=== PATIENT | male | born 1940 | race Caucasian/White ===

== ENCOUNTER → 2024-04-10 14:22 | Outpatient (REF) | payer BC, SELFPAY | LOC: PAVMRI 14:22 | PROVIDERS: ATTENDING PHYSICIAN Specialist; FAMILY PHYSICIAN Radiology Vascular & Interventional Radiology | DX: K86.2 Cyst of pancreas (principal) | CPT/HCPCS: 74183; A9575 ==

== ENCOUNTER 2024-10-09 06:31 | Day surgery (SDC) | payer OTHER, SELFPAY ==
[2024-09-24 12:35] VITALS: BMI 28.9
[2024-09-24 13:24] LABS: Hematocrit 40.6 % (39.0-52.0); Hemoglobin 13.9 g/dL (13.0-18.0); Mean Corp Hgb Conc. 34.2 g/dL (33.0-37.0); Mean Corpuscular Volume 96.4 fL (80.0-94.0); Mean Platelet Volume 11.6 fL (7.4-10.4); Platelet Count 172 10^3/uL (130-400); Red Blood Cell Count 4.21 10^6/uL (4.70-6.10); Red Cell Dist. Width 13.2 % (11.5-14.5); White Blood Cell Count 6.1 10^3/uL (4.8-10.8)
[2024-09-24 13:50] LABS: Glycohemoglobin (HgbA1c) 5.3 % (4.0-5.6)
[2024-09-24 14:18] LABS: ALT (SGPT) 27 U/L (0-50); AST (SGOT) 33 U/L (17-59); Albumin 4.5 g/dl (3.5-5.0); Alkaline Phosphatase 82 U/L (38-126); Blood Urea Nitrogen 16 mg/dl (9-20); Calcium 9.8 mg/dl (8.4-10.2); Carbon Dioxide 26 mmol/L (22-30); Chloride 103 mmol/L (98-107); Estimated Creatinine Clearance 55 ml/min; Glucose 126 mg/dl (70-99); Potassium 4.3 mmol/L (3.5-5.1); Sodium 137 mmol/L (135-145); Total Bilirubin 1.9 mg/dl (0.2-1.3); Total Protein 7.1 g/dl (6.3-8.2); eGFR > 60.00
[2024-10-02 11:41] VITALS: BMI 28.9
[2024-10-09] VITALS (10 sets, daily range): BP systolic 156–180; BP diastolic 75–89; BMI 28.9
[2024-10-09] MEDS: CELEBREX 200 MG PO (06:37)
[2024-10-09] MEDS: TYLENOL 1000 MG PO (06:37)
[2024-10-09] MEDS: NORMOSOL-R/PLASMALYTE-A 1000 IV (06:48)
--- NOTE | 2024-10-09 06:50 | PTCARENOTE ---
Hammad Earl did not want the shoulder immobilizer that patient brought in. He took the sling instead. Will monitor patient.
--- NOTE | 2024-10-09 07:17 | W.DS.TRANS ---
DC Summary - [employer] Development [employer]
-
Discharge Instructions:
Sleep Apnea Risk Intermediate
Discharge Diagnosis/Procedures L Reverse TSA 10/09/24
Diet As tolerated
Activity No strenuous activity
Driving Restrictions No driving
Instructions:
Stand-Alone Forms: SDS Total Shoulder D/C Inst.
Changes to Home Medications: Yes
Discharge Medications:
DC Medications w/original date entered in [facility]
lisinopril 20 mg tablet 20 mg PO DAILY Blood pressure 08/12/15
cholecalciferol (vitamin D3) 25 mcg (1,000 unit) tablet (Vitamin D3) 25 mcg PO DAILY 10/02/24
ibuprofen-diphenhydramine citrate 200 mg-38 mg tablet (Advil PM) 1 cap PO HS 10/02/24
mupirocin 2 % topical ointment 1 applic topical BID 10/02/24
rosuvastatin 20 mg tablet 20 mg PO HS 10/02/24
acetaminophen 325 mg tablet (Tylenol) 650 mg (2 x 325 mg) PO QID #1 tab 10/09/24
aspirin 325 mg tablet 325 mg PO DAILY blood clot prevention #1 tab 10/09/24
celecoxib 100 mg capsule 100 mg PO BID Anti-inflammatory #14 caps 10/09/24
dexamethasone 4 mg tablet 4 mg PO BID inflammation #6 tabs 10/09/24
docusate sodium 100 mg capsule (Colace) 100 mg PO BID stool softner #1 cap 10/09/24
magnesium hydroxide 400 mg/5 mL oral suspension (Milk of Magnesia) 30 ml PO HS PRN Constipation #1 mL 10/09/24
ondansetron 4 mg disintegrating tablet 4 mg PO Q6H PRN n/v #20 tabs 10/09/24
oxycodone 5 mg tablet 5 mg PO Q6H PRN 1 tab moderate pain, 2 tabs severe pain #30 tabs 10/09/24
sennosides 8.6 mg tablet (Senokot) 17.2 mg (2 x 8.6 mg) PO BID laxative #2 tabs 10/09/24
Home Medication Changes
acetaminophen 325 mg tablet (Tylenol) 650 mg (2 x 325 mg) PO QID #1 tab 10/09/24
aspirin 325 mg tablet 325 mg PO DAILY blood clot prevention #1 tab 10/09/24
celecoxib 100 mg capsule 100 mg PO BID Anti-inflammatory #14 caps 10/09/24
dexamethasone 4 mg tablet 4 mg PO BID inflammation #6 tabs 10/09/24
docusate sodium 100 mg capsule (Colace) 100 mg PO BID stool softner #1 cap 10/09/24
magnesium hydroxide 400 mg/5 mL oral suspension (Milk of Magnesia) 30 ml PO HS PRN Constipation #1 mL 10/09/24
ondansetron 4 mg disintegrating tablet 4 mg PO Q6H PRN n/v #20 tabs 10/09/24
oxycodone 5 mg tablet 5 mg PO Q6H PRN 1 tab moderate pain, 2 tabs severe pain #30 tabs 10/09/24
sennosides 8.6 mg tablet (Senokot) 17.2 mg (2 x 8.6 mg) PO BID laxative #2 tabs 10/09/24
Pending Results: No
[2024-10-09] MEDS: ANCEF 5 IV (11:25)
== END 2024-10-09 11:40 | disposition home or self-care (01) ==
LOC: SDS 06:31
PROVIDERS: ATTENDING PHYSICIAN Specialist; FAMILY PHYSICIAN Family Medicine
DX: M75.122 Complete rotator cuff tear or rupture of left shoulder, not specified as traumatic (principal)
CPT/HCPCS: 23472; 36415; 73020; 80053; 83036; 85027; 87070; 93005; C1713; C1776

== ENCOUNTER 2024-10-12 15:15 | Emergency (ER) | payer OTHER, SELFPAY ==
[2024-10-12 15:19] VITALS: BP 153/70
--- NOTE | 2024-10-12 18:09 | ED.GENMED ---
History of Present Illness
General
Chief Complaint: Post Operative Problem(s)
Time Seen by Provider: 10/12/24 17:26
History of Present Illness
History of Present Illness:
84-year-old male presents to the emergency department for evaluation of bleeding from the left shoulder, he is 3 days status post reverse left total shoulder performed by Dr. Beltran. Bleeding is stopped as of now. Not on blood thinners. Denies
significant pain
Past History
Past History
ED Past Medical History: HTN and Hypercholesterolemia
ED Past Surgical History: Cholecystectomy and Orthopedic (knee replacement)
Social History
Tobacco: Former smoker (quit at age 23)
Alcohol: Daily (Beer and/or liquor)
Drug: None
Personal:
Living: with family
Employment: Retired
Family History
Family History: Other
Review of Systems
Review of Systems
Allergies reviewed?: Yes
All Other Systems: ROS reviewed and negative except as documented in HPI and ROS
Phy Exam
Physical Exam
Physical Exam:
GEN: Well appearing, NAD, WDWN
HEENT: Oral mucosa moist, no scleral icterus
Cardiac: Regular rate
Lung: No respiratory distress, no tachypnea
MSK: Incision site to the left shoulder is predominantly clean dry and intact however there is a minor amount of dehiscence to the lower aspect with minimal active bleeding. This was reapproximated and glue was applied for further hemostasis,
Aquacel dressing replaced
Skin: Good color, no pallor or jaundice, no rashes
Neuro: AO x3, moves all extremities freely
Psych: Calm, cooperative
Course
Vital Signs
Initial and Last Documented VS:
Initial Vital Signs
Temp Pulse Resp BP Pulse Ox
97.8 F 70 16 153/70 99
10/12/24 15:19 10/12/24 15:19 10/12/24 15:19 10/12/24 15:19 10/12/24 15:19
Last Documented Vital Signs
Temp Pulse Resp BP Pulse Ox
97.8 F 70 16 153/70 99
10/12/24 15:19 10/12/24 15:19 10/12/24 15:19 10/12/24 15:19 10/12/24 15:19
MDM/Problems Addressed
MDM/Problems Addressed:
Clinical image sent to patient's orthopedic surgeon who agrees the wound looks well, advised the patient can follow-up routinely as an outpatient
*Critical Care Note
Total Time (30-74mins, 75-104mins- exclusive of procedures): Not Applicable
ED Attending Note
-
Portions of this chart may have been created with voice recognition software.� Occasional wrong word or��sound alike� substitutions may have occurred due to the inherent limitations of voice recognition software.
Discharge Plan
Departure
Patient Disposition: Home (Routine Discharge)
Date of Disposition: 10/12/24
Time of Disposition: 18:15
Patient with high blood pressure during this ER visit?: No
Discharge Problem:
Post-op bleeding
Instructions: Bleeding After Surgery
Prescriptions:
No Action
lisinopril 20 MG tablet
20 mg PO DAILY
rosuvastatin 20 mg Tablet
20 mg PO HS
cholecalciferol (vitamin D3) [Vitamin D3] 25 mcg (1,000 unit) Tablet
25 mcg PO DAILY
Advil PM 200-38 mg Tablet
1 cap PO HS
mupirocin 2 % Ointment
1 applic TOPICAL BID
aspirin 325 mg tablet
325 mg PO DAILY Qty: 1 0RF
Rx Instructions:
Take with food
celecoxib 100 mg capsule
100 mg PO BID Qty: 14 0RF
Rx Instructions:
take with food
docusate sodium [Colace] 100 mg capsule
100 mg PO BID Qty: 1 0RF
magnesium hydroxide [Milk of Magnesia] 400 mg/5 mL suspension
30 ml PO HS PRN (Reason: Constipation) Qty: 1 0RF
dexamethasone 4 mg tablet
4 mg PO BID Qty: 6 0RF
Rx Instructions:
take with food
post-op use only
ondansetron 4 mg tablet,disintegrating
4 mg PO Q6H PRN (Reason: n/v) Qty: 20 0RF
Rx Instructions:
take 1/2h b/f pain med if recurrent nausea
allow to dissolve in mouth w/o water
sennosides [Senokot] 8.6 mg tablet
17.2 mg PO BID Qty: 2 0RF
oxycodone 5 mg tablet
5 mg PO Q6H PRN (Reason: 1 tab moderate pain, 2 tabs severe pain) Qty: 30 0RF
Rx Instructions:
Ongoing therapy
acetaminophen [Tylenol] 325 mg tablet
650 mg PO QID Qty: 1 0RF
Rx Instructions:
SCHEDULED DOSING
Referrals:
Mono Palacios MD [Family Provider] -
Interventions
Interventions:
*Risk Screen - Suicide Last Done: 10/12/24 15:20
*General Assessment Last Done: 10/12/24 16:41
*Neglect/Abuse Screening Last Done: 10/12/24 15:20
*ED COVID-19 Vaccine History Last Done: 10/12/24 16:41
ED-Skin Assessment Last Done: 10/12/24 16:41
Discharge Date and Time
Print Language: NEPALI
== END 2024-10-12 19:21 | disposition home or self-care (01) ==
LOC: EMR 15:15
PROVIDERS: EMERGENCY PHYSICIAN Emergency Medicine; FAMILY PHYSICIAN Family Medicine
DX: M96.830 Postprocedural hemorrhage of a musculoskeletal structure following a musculoskeletal system procedure (principal); Y83.8 Other surgical procedures as the cause of abnormal reaction of the patient, or of later complication, without mention of misadventure at the time of the procedure; E78.00 Pure hypercholesterolemia, unspecified; I10 Essential (primary) hypertension; Z87.891 Personal history of nicotine dependence
CPT/HCPCS: 99282

== ENCOUNTER 2024-11-20 12:55 | Outpatient (RCR) | payer OTHER, SELFPAY | END 2024-11-20 23:59 | disposition home or self-care (01) | LOC: RPT 12:55 | PROVIDERS: ATTENDING PHYSICIAN Physician Assistant Medical; FAMILY PHYSICIAN Family Medicine | DX: Z47.1 Aftercare following joint replacement surgery (principal); Z96.612 Presence of left artificial shoulder joint; Z73.6 Limitation of activities due to disability | CPT/HCPCS: 97010; 97110; 97161 ==

== ENCOUNTER 2024-12-21 10:17 | Outpatient (RCR) | payer OTHER, SELFPAY | END 2024-12-21 23:59 | disposition home or self-care (01) | LOC: RPT 10:17 | PROVIDERS: ATTENDING PHYSICIAN Physician Assistant Medical; FAMILY PHYSICIAN Family Medicine | DX: Z47.1 Aftercare following joint replacement surgery (principal); Z96.612 Presence of left artificial shoulder joint; Z73.6 Limitation of activities due to disability; M62.81 Muscle weakness (generalized); M25.512 Pain in left shoulder | CPT/HCPCS: 97010; 97110 ==

== ENCOUNTER 2025-01-18 08:58 | Outpatient (RCR) | payer OTHER, SELFPAY | END 2025-01-18 23:59 | disposition home or self-care (01) | LOC: RPT 08:58 | PROVIDERS: ATTENDING PHYSICIAN Physician Assistant Medical; FAMILY PHYSICIAN Family Medicine | DX: Z47.1 Aftercare following joint replacement surgery (principal); Z96.612 Presence of left artificial shoulder joint; Z73.6 Limitation of activities due to disability; M62.81 Muscle weakness (generalized); M25.512 Pain in left shoulder | CPT/HCPCS: 97010; 97110 ==

== ENCOUNTER 2025-01-21 08:58 | Outpatient (RCR) | payer OTHER, SELFPAY | END 2025-01-21 23:59 | disposition home or self-care (01) | LOC: RPT 08:58 | PROVIDERS: ATTENDING PHYSICIAN Physician Assistant Medical; FAMILY PHYSICIAN Family Medicine | DX: Z47.1 Aftercare following joint replacement surgery (principal); Z96.612 Presence of left artificial shoulder joint; Z73.6 Limitation of activities due to disability; M62.81 Muscle weakness (generalized) | CPT/HCPCS: 97010; 97110 ==

== ENCOUNTER 2025-03-16 16:25 | Emergency (ER) | payer OTHER, SELFPAY ==
[2025-03-16 16:38] VITALS: BP 125/100
[2025-03-16 21:59] VITALS: BMI 28.0
[2025-03-16 22:03] VITALS: BP 142/66
--- NOTE | 2025-03-16 22:44 | ED.GENMED ---
History of Present Illness
General
Chief Complaint: Visual Problem
Source: patient and family
Exam Limitations: none
Time Seen by Provider: 03/16/25 22:32
History of Present Illness
History of Present Illness:
See MDM
Past History
Past History
ED Past Medical History: HTN and Hypercholesterolemia
ED Past Surgical History: Cholecystectomy and Orthopedic (knee replacement)
Social History
Tobacco: Former smoker (quit at age 23)
Alcohol: Daily (Beer and/or liquor)
Drug: None
Personal:
Living: with family
Employment: Retired
Family History
Family History: Other
Phy Exam
Physical Exam
Physical Exam:
See MDM
Course
Orders/Labs/Results
Orders:
Orders
03/16/25 22:56
Complete Blood Count/With Diff Urgent
Comprehensive Metabolic Panel Urgent
03/17/25
CT Head & Neck Angio W/wo IV Urgent
Reason For Exam: intermittent left eye blurry vision
Abnormal Lab Results
03/16/25
22:56
RBC 3.90 L 10^6/uL
(4.70-6.10)
Hgb 12.7 L g/dL
(13.0-18.0)
Hct 36.7 L %
(39.0-52.0)
MCV 94.1 H fL
(80.0-94.0)
MCH 32.6 H pg
(27.0-31.0)
MPV 10.8 H fL
(7.4-10.4)
Absolute Neuts (auto) 7.4 H 10^3/uL
(1.4-6.5)
Absolute Monos (auto) 1.0 H 10^3/uL
(0.1-0.6)
Lymphocytes % 18.3 L %
(20.5-51.1)
Glucose 107 H mg/dl
(70-99)
03/16/25 22:56
03/16/25 22:56
Vital Signs
Initial and Last Documented VS:
Initial Vital Signs
Temp Pulse Resp BP Pulse Ox
97.8 F 55 16 125/100 97
03/16/25 16:38 03/16/25 16:38 03/16/25 16:38 03/16/25 16:38 03/16/25 16:38
Last Documented Vital Signs
Temp Pulse Resp BP Pulse Ox
97.8 F 76 18 120/68 99
03/16/25 16:38 03/17/25 03:02 03/17/25 03:02 03/17/25 03:02 03/17/25 03:02
MDM/Problems Addressed
Differential Diagnosis Includes:
Note:
CHIEF COMPLAINT(S)
Blurry vision in the left eye.
HISTORY OF PRESENT ILLNESS
The patient is an 84-year-old male with a past medical history significant for the use of lisinopril and rosuvastatin, presenting with blurry vision in the left eye. He reports that he has experienced some degree of blurring for the past year,
predominantly minimal until this morning, when it became completely blurred, and he 'could hardly see out of it.' The blurring resolved after resting for approximately three hours. Following an evaluation by his physician, the patient experienced
double vision later in the day, however, it resolved by the time of the emergency department visit. Patient does acknowledge that the blurry vision was in the left eye only.
The patients primary care physician suspected if symptoms worsened, urgent evaluation was necessary. The patient denies any history of taking blood thinners and reports no heart or lung conditions. No current blurry vision or double vision is
present. The patient reports a history of head trauma, striking his head once previously.
He did see the director of events few days ago and was told that his left eye was 'normal'. He was told to obtain carotid imaging in the next few days. However, since symptoms worsen, he came to emergency department.
PAST MEDICAL HISTORY
The patient is maintained on lisinopril and rosuvastatin for chronic conditions, the specifics of which are not detailed.
MEDICATIONS
Lisinopril.
Rosuvastatin.
PHYSICAL EXAM
General: Well appearing and non-toxic
HEENT: protecting airway. Pupils equal reactive. EOMI. No visual field cut
Neck: appears supple
CV: No evidence of cyanosis. Regular rate and rhythm
Resp: No accessory muscle use
Abd: Non-distended
Extremities: No deformities
Neuro: alert
Psych: Normal affect
Skin: Intact
Nursing notes reviewed and vital signs reviewed.
PLAN
Obtain a CT scan of the neck and head to evaluate the blood vessels, particularly the carotid arteries, and check for clots. Obtain blood work to check kidney function (creatinine). Consider an echocardiogram to assess for undiagnosed atrial
fibrillation or cardiac issues, given the intermittent nature of symptoms and potential embolic sources. Monitor vision and neurological status closely.
DIFFERENTIAL DIAGNOSIS
The Differential Diagnosis includes, in no particular order and is not limited to:
- Transient ischemic attack (TIA)
- Carotid artery stenosis
- Retinal artery occlusion
- Posterior vitreous detachment
- Hypertensive retinopathy
- Diabetic retinopathy
- Age-related macular degeneration
- Glaucoma
- Migraine aura without headache
- Amaurosis fugax
SUMMARY OF ENCOUNTER
The patient, an 84-year-old male, presented to the emergency department with concerns of blurred vision in the left eye, which had been present intermittently for a year but became severely blurred this morning and resolved after three hours. Double
vision was experienced later but was resolved by the time of his ED visit. A CT scan of the neck and head was performed and discussed with the primary care physician. Outpatient follow-up with the primary care for further assessment, such as an MRI
for more sensitive evaluation of a possible transient ischemic attack (TIA), was recommended.
RADIOLOGY � INDEPENDENT INTERPRETATION:
- My independent interpretation of the CT scan is negative for acute stenosis or significant sinus pathology.
MEDICAL DECISION MAKING
1. Number & Complexity of Problems:
- Chronic conditions affecting care: patient maintained on lisinopril and rosuvastatin.
- Differential diagnoses referenced include transient ischemic attack (TIA) among others.
2. Data Reviewed:
- Category 1: CT scan of head and neck reviewed.
3. Risk:
- Consideration of admission/observation was made due to potential complexity/risk. However, outpatient management was deemed appropriate based on negative CT findings and the primary care physicians ability to further investigate with MRI and
echocardiogram follow-up.
PATHOLOGIES TO CONSIDER
- Transient ischemic attack (TIA)
- Carotid artery stenosis
- Retinal artery occlusion
*Pulse Oximetry
SaO2: 99
Oxygen Mode of Delivery: Room air
Patient hypoxic: no
*Critical Care Note
Total Time (30-74mins, 75-104mins- exclusive of procedures): Not Applicable
ED Attending Note
-
Portions of this chart may have been created with voice recognition software.� Occasional wrong word or��sound alike� substitutions may have occurred due to the inherent limitations of voice recognition software.
Discharge Plan
Departure
Patient Disposition: Home (Routine Discharge)
Date of Disposition: 03/17/25
Time of Disposition: 03:03
Patient with high blood pressure during this ER visit?: No
Discharge Problem:
Blurred vision, left eye
Prescriptions:
No Action
lisinopril 20 MG tablet
20 mg PO DAILY
Advil PM 200-38 mg Tablet
1 cap PO HS
rosuvastatin 40 mg Tablet
40 mg PO HS
cholecalciferol (vitamin D3) [Vitamin D3] 125 mcg (5,000 unit) Tablet
125 mcg PO DAILY
Referrals:
Mono Palacios MD [Family Provider, Family Practice]
Activity Restrictions/Additional Instructions:
Please return for any worsening symptoms.
You may return at any time if you have further concerns.
Please follow up with your doctor at the first available appointment, preferably this week.
Thank you for choosing [facility].
Interventions
Interventions:
*Risk Screen - Suicide Last Done: 03/16/25 16:40
*General Assessment Last Done: 03/16/25 21:59
*Neglect/Abuse Screening Last Done: 03/16/25 16:40
*ED- Fall Risk Assessment Last Done: 03/16/25 21:59
*ED COVID-19 Vaccine History Last Done: 03/16/25 21:59
ED-EENT Assessment Last Done: 03/16/25 22:10
ED- Neurological Assessment Last Done: 03/16/25 22:10
ED Swallowing Screen Last Done: 03/16/25 22:09
Discharge Date and Time
Print Language: WOLOF
[2025-03-16 23:00] VITALS: BP 133/64
[2025-03-16 23:07] LABS: % Basophils 0.5 % (0-2); % Eosinophils 1.8 % (0-6); % Immature Granulocytes 0.4 % (0-0.5); % Lymphocytes 18.3 % (20.5-51.1); % Monocytes 9.3 % (1.7-9.3); % Neutrophils 69.7 % (42.2-75.2); Absolute Basophils 0.1 10^3/uL (0-0.2); Absolute Eosinophils 0.2 10^3/uL (0-0.7); Absolute Lymphocytes 1.9 10^3/uL (1.2-3.4); Absolute Neutrophils 7.4 10^3/uL (1.4-6.5); Hematocrit 36.7 % (39.0-52.0); Hemoglobin 12.7 g/dL (13.0-18.0); Mean Corp Hgb Conc. 34.6 g/dL (33.0-37.0); Mean Corpuscular Hgb 32.6 pg (27.0-31.0); Mean Corpuscular Volume 94.1 fL (80.0-94.0); Mean Platelet Volume 10.8 fL (7.4-10.4); Nucleated Red Blood Cells % 0 % (-); Platelet Count 250 10^3/uL (130-400); Red Cell Dist. Width 12.1 % (11.5-14.5); White Blood Cell Count 10.6 10^3/uL (4.8-10.8)
[2025-03-16 23:16] LABS: ALT (SGPT) 21 U/L (0-50); AST (SGOT) 22 U/L (17-59); Albumin 3.9 g/dl (3.5-5.0); Alkaline Phosphatase 109 U/L (38-126); Blood Urea Nitrogen 11 mg/dl (9-20); Calcium 9.2 mg/dl (8.4-10.2); Carbon Dioxide 23 mmol/L (22-30); Chloride 107 mmol/L (98-107); Estimated Creatinine Clearance 62 ml/min; Glucose 107 mg/dl (70-99); Potassium 4.3 mmol/L (3.5-5.1); Sodium 138 mmol/L (135-145); Total Bilirubin 1.1 mg/dl (0.2-1.3); Total Protein 6.6 g/dl (6.3-8.2); eGFR > 60.00
[2025-03-17] VITALS: BP 121/59
[2025-03-17 01:00] VITALS: BP 121/64
[2025-03-17 03:02] VITALS: BP 120/68
== END 2025-03-17 03:09 | disposition home or self-care (01) ==
LOC: EMR 16:25
PROVIDERS: EMERGENCY PHYSICIAN Student in an Organized Health Care Education/Training Program; FAMILY PHYSICIAN Family Medicine
DX: H53.8 Other visual disturbances (principal); Z87.891 Personal history of nicotine dependence
CPT/HCPCS: 99285; 70496; 70498; 80053; 85025; Q9967

== ENCOUNTER → 2025-03-29 13:59 | Outpatient (REF) | payer OTHER, SELFPAY | LOC: RAD 13:59 | PROVIDERS: ATTENDING PHYSICIAN Surgery Vascular Surgery; FAMILY PHYSICIAN Family Medicine | DX: I65.23 Occlusion and stenosis of bilateral carotid arteries (principal) | CPT/HCPCS: 93880 ==

== ENCOUNTER → 2025-04-02 08:20 | Outpatient (REF) | payer OTHER, SELFPAY | LOC: RCS 08:20 | PROVIDERS: ATTENDING PHYSICIAN Family Medicine | DX: G45.3 Amaurosis fugax (principal) | CPT/HCPCS: 93306 ==

== ENCOUNTER → 2025-04-13 14:26 | Outpatient (REF) | payer OTHER, SELFPAY ==
[2025-04-13 15:49] LABS: C-Reactive Protein 49.00 mg/L (0.0-10.00)
== END ==
LOC: REG 14:26
PROVIDERS: ATTENDING PHYSICIAN Ophthalmology; FAMILY PHYSICIAN Family Medicine
DX: G45.3 Amaurosis fugax (principal)
CPT/HCPCS: 36415; 85652; 86140

== ENCOUNTER 2025-04-15 11:10 | Inpatient (IN) | payer OTHER, SELFPAY ==
[2025-04-15] VITALS (8 sets, daily range): BP systolic 119–162; BP diastolic 59–88; BMI 26.3; BMI 26.5
--- NOTE | 2025-04-15 09:08 | ED.GENMED ---
Addendum entered and electronically signed by Jyotsna Herron, 04/15/25 10:20:
No significant lack abnormalities other than potassium hemolyzed, will repeat. Mild anemia noted, no indication for blood transfusion
NIH stroke scale is 0, thrombolytics are not indicated
Original Note:
History of Present Illness
General
Chief Complaint: Visual Problem
Time Seen by Provider: 04/15/25 08:56
Nursing documentation reviewed up to this point in time: agreed with
History of Present Illness
History of Present Illness:
84-year-old male brought to the ER by family for further evaluation of visual changes. Patient had been admitted to this hospital the end of February for evaluation after syncopal event. He had a reported episode of amaurosis fugax at that time which
has not recurred. Patient had routine follow-up with his eye manager career, Dr. Mac, with whom he had outpatient labs performed. He was advised that his sed rate was elevated and he was initiated on prednisone yesterday. He has taken 2
doses. He reports that he is feeling otherwise well. No chest pain, no shortness of breath, no additional syncope or other reported trauma. He is on baby aspirin daily, no other blood thinners noted. He has been eating and drinking without
difficulty, although he reports he has lost about 15 pounds in the last month or so.
I was able to review patient history and evaluation with Dr. Mendoza who would recommend patient for admission for IV steroids and temporal artery biopsy given decreased vision to his right eye and concern for possible progression to his left eye.
Past History
Past History
ED Past Medical History: HTN and Hypercholesterolemia
ED Past Surgical History: Cholecystectomy and Orthopedic (knee replacement)
Social History
Tobacco: Former smoker (quit at age 23)
Alcohol: Daily (Beer and/or liquor)
Drug: None
Personal:
Living: with family
Employment: Retired
Family History
Family History: Other
Phy Exam
Physical Exam
Physical Exam:
Vital signs reviewed, within normal limits, head is normocephalic atraumatic, PERRL, EOMI, speech is clear, mucous membranes moist, no facial asymmetry noted, no dysdiadochokinesia, no ataxia, no pronator drift, GCS is 15, heart regular rate and
rhythm not murmurs or ectopy, lungs are clear to auscultation without wheezes rales or rhonchi, no carotid bruits, no JVD, abdomen is soft and nontender on palpation, extremities without edema.
Course
Orders/Labs/Results
Orders:
Orders
04/15/25 09:09
Electrocardiogram (*1) Stat
Reason for Study: Other
Other Reason for Exam: chest pain
EKG- Treatment ONCE
04/15/25 09:10
MethylPREDNISolone PF [Solu-Medrol Pf] 60 mg IV NOW STA
04/15/25 09:19
Basic Metabolic Panel Urgent
Complete Blood Count/With Diff Urgent
PTT Urgent
Prothrombin Time Urgent
04/15/25 10:04
Basic Metabolic Panel Urgent
Abnormal Lab Results
04/15/25
09:19
RBC 3.81 L 10^6/uL
(4.70-6.10)
Hgb 12.0 L g/dL
(13.0-18.0)
Hct 35.6 L %
(39.0-52.0)
MCH 31.5 H pg
(27.0-31.0)
Abs Immat Gran (auto) 0.1 H 10^3/uL
(0-0.05)
Immature Gran % 0.7 H %
(0-0.5)
Neutrophils % 76.6 H %
(42.2-75.2)
Lymphocytes % 18.2 L %
(20.5-51.1)
Glucose 183 H mg/dl
(70-99)
04/15/25 09:19
Vital Signs
Initial and Last Documented VS:
Initial Vital Signs
Temp Pulse Resp BP Pulse Ox
97.9 F 94 18 126/61 97
04/15/25 08:53 04/15/25 08:53 04/15/25 08:53 04/15/25 08:53 04/15/25 08:53
Last Documented Vital Signs
Temp Pulse Resp BP Pulse Ox
97.9 F 94 18 126/61 97
04/15/25 08:53 04/15/25 08:53 04/15/25 08:53 04/15/25 08:53 04/15/25 09:08
MDM/Problems Addressed
Differential Diagnosis Includes:
Differential diagnosis to consider but not limited to temporal arteritis, other vasculitis, CVA along with other etiologies considered
Chronic conditions affecting care:
Hypertension, high cholesterol
*Pulse Oximetry
SaO2: 97
Oxygen Mode of Delivery: Room air
Patient hypoxic: no
*EKG
Interpreted by ED Provider?: Yes (I dependently viewed and interpreted twelve-lead EKG showing sinus rhythm with first-degree AV block, rate 92, right bundle branch block, leftward axis, left anterior fascicular block, no ST elevation, no change
compared to prior from 09/24/2024)
*Deputy Coroner Investigator Interpretation
Interpretation: abnormal (I dependently viewed and interpreted rhythm strip showing normal sinus rhythm with first-degree AV block, right bundle branch block, no ST elevation)
*Critical Care Note
Total Time (30-74mins, 75-104mins- exclusive of procedures): Not Applicable
Data Reviewed
Review of Other/Old Records Reveals: Labs (ESR dated 04/13/25 elevated at 83)
Update Note
Update Note:
Patient and son present at bedside expressed understanding of need for temporal artery biopsy and IV steroids. Steroids are ordered. Awaiting labs for admission. I was able to review prior diagnostics which included echocardiogram, Bilateral
carotid artery ultrasound 03/29/2025, head and neck CTA 03/17/2025.
I reviewed patient presentation with on-call hospitalist who accepts patient for admission for further evaluation of visual disturbance and concern for temporal arteritis
ED Attending Note
-
Portions of this chart may have been created with voice recognition software.� Occasional wrong word or��sound alike� substitutions may have occurred due to the inherent limitations of voice recognition software.
Discharge Plan
Departure
Patient Disposition: Admit
Date of Disposition: 04/15/25
Time of Disposition: 10:08
Presentation/result/management discussed w/ accepting MD/DO: Hospitalist
Discharge Problem:
Alteration in vision
Prescriptions:
No Action
lisinopril 20 MG tablet
20 mg PO DAILY
Advil PM 200-38 mg Tablet
1 cap PO HS
rosuvastatin 40 mg Tablet
40 mg PO HS
cholecalciferol (vitamin D3) [Vitamin D3] 125 mcg (5,000 unit) Tablet
125 mcg PO DAILY
Referrals:
Mono Palacios MD [Family Provider, Family Practice]
Interventions
Interventions:
*Risk Screen - Suicide Last Done: 04/15/25 08:53
*General Assessment Last Done: 04/15/25 08:53
ED- Neurological Assessment Last Done: 04/15/25 09:28
ED-EENT Assessment Last Done: 04/15/25 09:28
Discharge Date and Time
Print Language: BELIZEAN
[2025-04-15] MEDS: SOLU-MEDROL PF 60 MG IV (09:20)
[2025-04-15 09:35] LABS: Hematocrit 35.6 % (39.0-52.0); Hemoglobin 12.0 g/dL (13.0-18.0); Mean Corp Hgb Conc. 33.7 g/dL (33.0-37.0); Mean Corpuscular Volume 93.4 fL (80.0-94.0); Nucleated Red Blood Cells % 0 % (-); Platelet Count 296 10^3/uL (130-400); Red Cell Dist. Width 12.0 % (11.5-14.5)
[2025-04-15 09:46] LABS: INR 1.04; PT 14.1 Sec (11.4-14.6)
[2025-04-15 09:47] LABS: APTT 31.1 Sec (23.4-35.0)
[2025-04-15 09:51] LABS: Blood Urea Nitrogen 16 mg/dl (9-20); Calcium 9.7 mg/dl (8.4-10.2); Carbon Dioxide 22 mmol/L (22-30); Chloride 104 mmol/L (98-107); Glucose 183 mg/dl (70-99); Sodium 135 mmol/L (135-145); eGFR > 60.00
--- NOTE | 2025-04-15 10:17 | ED.GENMED ---
History of Present Illness
General
Chief Complaint: Visual Problem
Time Seen by Provider: 04/15/25 08:56
Past History
Past History
ED Past Medical History: HTN and Hypercholesterolemia
ED Past Surgical History: Cholecystectomy and Orthopedic (knee replacement)
Social History
Tobacco: Former smoker (quit at age 23)
Alcohol: Daily (Beer and/or liquor)
Drug: None
Personal:
Living: with family
Employment: Retired
Family History
Family History: Other
Phy Exam
NIH Stroke Score
Level of Consciousness: 0 - Alert
LOC questions: 0-Answers both correctly
LOC Commands: 0-Performs both correctly
Best Gaze: 0-Normal
Visual Lewis: 0=Normal, no visual loss
Facial palsy: 0=Normal, symmetrical
Motor - Right Arm: 0=No drift 10 seconds
Motor - Left Arm: 0=No drift 10 seconds
Motor - Right Le-No drift 5 seconds
Motor - Left Le-No drift 5 seconds
Limb Ataxia: 0-Absent
Sensation: 0-Normal
Best Language: 0-No aphasia
Dysarthria: 0-Normal
Extinction and Inattention: 0-No abnormality
Total Score:: 0
Course
Orders/Labs/Results
Orders:
Orders
04/15/25 09:09
Electrocardiogram (*1) Stat
Reason for Study: Other
Other Reason for Exam: chest pain
EKG- Treatment ONCE
04/15/25 09:10
MethylPREDNISolone PF [Solu-Medrol Pf] 60 mg IV NOW STA
04/15/25 09:19
Basic Metabolic Panel Urgent
Complete Blood Count/With Diff Urgent
PTT Urgent
Prothrombin Time Urgent
04/15/25 10:04
Basic Metabolic Panel Urgent
Abnormal Lab Results
04/15/25
09:19
RBC 3.81 L 10^6/uL
(4.70-6.10)
Hgb 12.0 L g/dL
(13.0-18.0)
Hct 35.6 L %
(39.0-52.0)
MCH 31.5 H pg
(27.0-31.0)
Abs Immat Gran (auto) 0.1 H 10^3/uL
(0-0.05)
Immature Gran % 0.7 H %
(0-0.5)
Neutrophils % 76.6 H %
(42.2-75.2)
Lymphocytes % 18.2 L %
(20.5-51.1)
Glucose 183 H mg/dl
(70-99)
04/15/25 09:19
Potassium hemolyzed, will redraw. Kidney function preserved. Hemoglobin reflecting mild anemia, no indication for transfusion
Vital Signs
Initial and Last Documented VS:
Initial Vital Signs
Temp Pulse Resp BP Pulse Ox
97.9 F 94 18 126/61 97
04/15/25 08:53 04/15/25 08:53 04/15/25 08:53 04/15/25 08:53 04/15/25 08:53
Last Documented Vital Signs
Temp Pulse Resp BP Pulse Ox
97.9 F 94 18 126/61 97
04/15/25 08:53 04/15/25 08:53 04/15/25 08:53 04/15/25 08:53 04/15/25 10:17
*Pulse Oximetry
SaO2: 97
Oxygen Mode of Delivery: Room air
ED Attending Note
-
Portions of this chart may have been created with voice recognition software.� Occasional wrong word or��sound alike� substitutions may have occurred due to the inherent limitations of voice recognition software.
Discharge Plan
Departure
Patient Disposition: Admit
Date of Disposition: 04/15/25
Time of Disposition: 10:08
Presentation/result/management discussed w/ accepting MD/DO: Hospitalist
Discharge Problem:
Alteration in vision
Prescriptions:
No Action
lisinopril 20 MG tablet
20 mg PO DAILY
prednisone 20 mg Tablet
20 mg PO BID
aspirin 81 mg Tablet,Delayed Release (Dr/Ec)
81 mg PO DAILY
rosuvastatin [Crestor] 20 mg Tablet
20 mg PO QPM
Referrals:
Mono Palacios MD [Family Provider, Family Practice]
Interventions
Interventions:
*Risk Screen - Suicide Last Done: 04/15/25 08:53
*General Assessment Last Done: 04/15/25 08:53
ED- Neurological Assessment Last Done: 04/15/25 09:28
ED-EENT Assessment Last Done: 04/15/25 09:28
Discharge Date and Time
Print Language: ALBANIAN
--- NOTE | 2025-04-15 10:20 | ED.GENMED ---
History of Present Illness
General
Chief Complaint: Visual Problem
Time Seen by Provider: 04/15/25 08:56
Past History
Past History
ED Past Medical History: HTN and Hypercholesterolemia
ED Past Surgical History: Cholecystectomy and Orthopedic (knee replacement)
Social History
Tobacco: Former smoker (quit at age 23)
Alcohol: Daily (Beer and/or liquor)
Drug: None
Personal:
Living: with family
Employment: Retired
Family History
Family History: Other
Course
Orders/Labs/Results
Orders:
Orders
04/15/25 09:09
Electrocardiogram (*1) Stat
Reason for Study: Other
Other Reason for Exam: chest pain
EKG- Treatment ONCE
04/15/25 09:10
MethylPREDNISolone PF [Solu-Medrol Pf] 60 mg IV NOW STA
04/15/25 09:19
Basic Metabolic Panel Urgent
Complete Blood Count/With Diff Urgent
PTT Urgent
Prothrombin Time Urgent
04/15/25 10:04
Basic Metabolic Panel Urgent
04/15/25 10:34
Add On- LAB Urgent
Tests Added?: LFT
04/15/25 11:00
MethylPREDNISolone. [Solu-Medrol] 1,000 mg 0.9% Sodium Chloride 250 ml [Nss] 250 ml IV Q24H
Abnormal Lab Results
04/15/25
09:19
RBC 3.81 L 10^6/uL
(4.70-6.10)
Hgb 12.0 L g/dL
(13.0-18.0)
Hct 35.6 L %
(39.0-52.0)
MCH 31.5 H pg
(27.0-31.0)
Abs Immat Gran (auto) 0.1 H 10^3/uL
(0-0.05)
Immature Gran % 0.7 H %
(0-0.5)
Neutrophils % 76.6 H %
(42.2-75.2)
Lymphocytes % 18.2 L %
(20.5-51.1)
Glucose 183 H mg/dl
(70-99)
04/15/25 09:19
Vital Signs
Initial and Last Documented VS:
Initial Vital Signs
Temp Pulse Resp BP Pulse Ox
97.9 F 94 18 126/61 97
04/15/25 08:53 04/15/25 08:53 04/15/25 08:53 04/15/25 08:53 04/15/25 08:53
Last Documented Vital Signs
Temp Pulse Resp BP Pulse Ox
97.9 F 94 18 126/61 97
04/15/25 08:53 04/15/25 08:53 04/15/25 08:53 04/15/25 08:53 04/15/25 09:08
*Pulse Oximetry
SaO2: 97
Oxygen Mode of Delivery: Room air
ED Attending Note
-
Portions of this chart may have been created with voice recognition software.� Occasional wrong word or��sound alike� substitutions may have occurred due to the inherent limitations of voice recognition software.
Discharge Plan
Departure
Patient Disposition: Admit
Date of Disposition: 04/15/25
Time of Disposition: 10:39
Prescriptions:
No Action
lisinopril 20 MG tablet
20 mg PO DAILY
prednisone 20 mg Tablet
20 mg PO BID
aspirin 81 mg Tablet,Delayed Release (Dr/Ec)
81 mg PO DAILY
rosuvastatin [Crestor] 20 mg Tablet
20 mg PO QPM
Referrals:
Mono Palacios MD [Family Provider, Family Practice]
Interventions
Interventions:
*Risk Screen - Suicide Last Done: 04/15/25 08:53
*General Assessment Last Done: 04/15/25 08:53
ED- Neurological Assessment Last Done: 04/15/25 09:28
ED-EENT Assessment Last Done: 04/15/25 09:28
Discharge Date and Time
Print Language: [place]
--- NOTE | 2025-04-15 10:49 | HPS.HSE ---
Family Physician
-
Family Physician: Mono Palacios
Chief Complaint
-
R eye blurry vision
History of Present Illness
84yo M with PMHx of L shoulder joint replacement, ASCVD, HLD, HTN sent by south asian history professor with concern for GCA. PAtient developed blurry and double vision in his L eye approximately 1 month ago, that was transient. Eval in ED showed b/l carotid
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 1 week later he developed progressive blurred vision in his R eye and was followed by south asian history professor . ESR was checked nd resulted 83. Patient also complains of 1 month of b/l jaw
pain on mastication.
Medical History
Past Medical History
Past Medical History: Reports Other
Additional Past Medical History:
see above
Past Surgical History: Reports Other
Additional Past Surgical History:
see above
Social History
Tobacco: Former Smoker
Alcohol: Former
Drug: None
Family History
Family History: Not pertinent
Allergies / Home Medications
Allergies reflects when Allergies were last updated in [employer].
Home Medications with original date entered in [employer]
Allergy/Medication List:
Allergies
Allergy/AdvReac Type Severity Reaction Status Date / Time
No Known Allergies Allergy Verified 04/15/25 08:54
Home Medications
lisinopril 20 mg tablet 20 mg PO DAILY Blood pressure 08/12/15
aspirin 81 mg tablet,delayed release 81 mg PO DAILY 04/15/25
prednisone 20 mg tablet 20 mg PO BID 04/15/25
rosuvastatin 20 mg tablet (Crestor) 20 mg PO QPM 04/15/25
Review of Systems
-
A 12 point ROS was completed and negative except as noted: Yes
Constitutional: Reports No Symptoms
EENT: Reports See HPI
Physical Exam
Vital Signs
Vital Signs
Temp Pulse Resp BP Pulse Ox
97.9 F 94 18 126/61 97
04/15/25 08:53 04/15/25 08:53 04/15/25 08:53 04/15/25 08:53 04/15/25 09:08
Physical Exam
General: Well Developed, Well Nourished and No Apparent Distress
HEENT: NormoCephalic, Anicteric and Moist mucous membranes
Respiratory: Clear; No Wheezes or Crackles
Cardiac: S1/S2 and Regular Rhythm; No Tachycardia
GI: Soft, Non Tender and Non Distended
Genito-urinary: No costovertebral tender
Musculoskeletal: No Clubbing, No Cyanosis and No Edema
Skin: Warm; No Rash or Jaundice
Neuro: Awake, Alert, Oriented and AO x 3
Psych: Calm
Laboratory Results
-
04/15/25 09:19
Laboratory Results
PT 14.1 Sec (11.4-14.6) 04/15/25 09:19
INR 1.04 04/15/25 09:19
APTT 31.1 Sec (23.4-35.0) 04/15/25 09:19
Total Bilirubin Cancelled 04/15/25 09:19
AST Cancelled 04/15/25 09:19
ALT Cancelled 04/15/25 09:19
Alkaline Phosphatase Cancelled 04/15/25 09:19
Data Reviewed
-
Lab Data: Labs Reviewed by me
Old Records: Reviewed
Impression/Plan
-
A/P:
#R eye blurred vision and pain in b/l TMJ
concerned for CGA
Pulse steroids due to ophthalmic symptoms
Vasc Sx for biopsy TA b/l
MRI brain to r/o alternative causes like optic neuritis
watch AM blood sugars
#Carotid stenosis
80% R and 60% left
Vasc Sx follow up
cont ASA
#HLD
cont statin
#Essential HTN
cont lisinopril
#1st degree AVB
avoid CCB and BB
telemetry
EKG with bifascicular block not changed since Sep 2024
#Recent decrease in appetite
recommended outpatient cancer screening with PCP, consider repeating colonoscopy - patient and son bedside verbalized understanding of the instructions
DVT ppx SCDs (for TA biopsy)
Full code
I have spent at least 78min reviewing chart, test results, communication with consultants, family and providing direct apatient care
[2025-04-15] MEDS: SOLU-MEDROL 258 MG IV (11:20)
[2025-04-15 11:40] LABS: ALT (SGPT) 17 U/L (0-50); AST (SGOT) 17 U/L (17-59); Albumin 3.7 g/dl (3.5-5.0); Alkaline Phosphatase 104 U/L (38-126); Blood Urea Nitrogen 17 mg/dl (9-20); Calcium 9.7 mg/dl (8.4-10.2); Carbon Dioxide 24 mmol/L (22-30); Chloride 105 mmol/L (98-107); Glucose 159 mg/dl (70-99); Potassium 4.6 mmol/L (3.5-5.1); Sodium 135 mmol/L (135-145); Total Protein 6.8 g/dl (6.3-8.2); eGFR > 60.00
--- NOTE | 2025-04-15 12:09 | CON.VAS ---
Addendum entered and electronically signed by Chris Greenberg III, MD 04/15/25 16:08:
This patient was seen and examined in collaboration with JOAQUIN Bell. I agree with the history and physical exam as well as the assessment and plan. I have the following additions:
Asked to provide temporal artery biopsies for patient given concern for temporal arteritis
Patient is known to me from recent outpatient office visit for carotid stenosis
Symptom constellation reviewed
Will plan for bilateral temporal artery biopsies 04/16/2025. The technical aspects of this procedure were discussed with the patient in detail. The benefits and rationale for this approach were discussed with him in detail. Operative risks were
discussed with him in detail including but not limited to bleeding, infection, wound healing complications and negative biopsy result. He expressed clear understanding of our conversation and agrees to proceed with surgery as detailed above
Signed:
Chris Greenberg III, MD
Vascular Surgery
[facility] [address]
Original Note:
Consultation
Consultation Request
Date/Time Consultation Performed: 04/15/25 12:00
Performing Provider: Dionicio
Reason for Consultation: TAB
Medical History
-
Chief Complaint: Blurred vision R eye
History of Present Illness:
84 yo male known to vascular service, last seen in our office by Dr Greenberg on 03/24/25 for carotid stenosis. Pt presenting to the ER today from his foreign exchange trader with concern for GCA and right eye blurred vision. Pt states he developed blurred and
double vision in his left eye about 1 month ago that was transient in nature. About one week ago he developed right eye progressive blurred vision and was seen by Dr Duggan today who sent him to the ER. ESR and CRP elevated. Also admits to
discomfort in his right jaw with chewing. Denies headaches. Denies stroke like symptoms.
Vascular consultation for temporal artery biopsy to r/o GCA. Pt seen at bedside in the ER with his son present.
Past Medical History
Past Medical History: Other (L shoulder joint replacement, ASCVD, HLD, HTN)
Past Surgical History: Orthopedic
Social History
Tobacco: Former Smoker
Alcohol: Daily
Drug: None
Personal:
Living: With Family
Employment: Retired
Family History
Family History: Reviewed & Not Pertinent
Allergies / Home Medications
Allergy/AdvReac Type Severity Reaction Status Date / Time
No Known Allergies Allergy Verified 04/15/25 08:54
�Medication �Instructions �Recorded �Confirmed �Type
lisinopril 20 mg tablet 20 mg PO DAILY Blood pressure 08/12/15 04/15/25 History
aspirin 81 mg tablet,delayed 81 mg PO DAILY 04/15/25 04/15/25 History
release
prednisone 20 mg tablet 20 mg PO BID 04/15/25 04/15/25 History
rosuvastatin 20 mg tablet (Crestor) 20 mg PO QPM 04/15/25 04/15/25 History
Review of Systems
-
History Source: Patient and Family
All other systems: Negative unless noted
Constitutional: Reports No Symptoms
EENT: Reports Other (right jaw pain with chewing)
Respiratory: Reports No Symptoms
Cardiac: Reports No Symptoms
Vascular: Denies Leg Pain / Claudication
Abdomen/GI: Reports No Symptoms
: Reports No Symptoms
Musculoskeletal: Reports No Symptoms
Skin: Reports No Symptoms
Neurological: Reports Other (blurred vision)
Physical Exam
Vital Signs
Temp Pulse Resp BP Pulse Ox
97.9 F 94 18 126/61 97
04/15/25 08:53 04/15/25 08:53 04/15/25 08:53 04/15/25 08:53 04/15/25 09:08
Lab Results
04/15/25 09:19
04/15/25 11:15
Physical Exam
General: No Apparent Distress
HEENT: Normocephalic and Atraumatic
Respiratory: Non Labored Respirations
Cardiac: Negative JVD
GI: Soft and Non Tender
Musculoskeletal: No Clubbing and No Cyanosis
Skin: Warm
Neuro: Awake, Alert and Oriented
Psych: Calm
Assessment / Plan
-
84 yo male with PMH significant for carotid stenosis
here with 1 month of transient left eye blurred vision, now progressed to right eye blurred vision
discomfort in right jaw with chewing
elevated CRP and ESR
Plan:
BL TAB tomorrow, NPO after midnight
Data Reviewed
-
CT Scan: Discussed with Patient
Ultrasound: Discussed with Patient
Labs: Labs Reviewed by me
--- NOTE | 2025-04-15 12:34 | PTCARENOTE ---
Rn Flow associate editor- Patient states that he used to drink nightly, but has not drank alcohol since 02/21.
--- NOTE | 2025-04-15 13:50 | CM ---
Patient seen at bedside in ED. Patient stated that he lives in an apartment home with 4 apartments. He has one, grand children and son have the rest. Patient stated that he has no DME that he uses, patient has a walker that is in the garage
somewhere. Patient son present and son will follow up to look for the walker if needed. Patient PCP is Dr. Barnett and he uses the [facility], in [place]. CM will continue to follow for discharge planning needs.
Plan; home with VN vs home with no needs; pending medical treatment plan
[2025-04-15] MEDS: CRESTOR 20 MG PO (17:18)
[2025-04-16] VITALS (16 sets, daily range): BP systolic 19–134; BP diastolic 46–74
[2025-04-16] MEDS: TUMS CHEWABLE TABLET 200 MG PO (03:33)
[2025-04-16 06:50] LABS: Hematocrit 33.4 % (39.0-52.0); Hemoglobin 11.2 g/dL (13.0-18.0); Mean Corp Hgb Conc. 33.5 g/dL (33.0-37.0); Mean Corpuscular Volume 94.1 fL (80.0-94.0); Nucleated Red Blood Cells % 0 % (-); Platelet Count 310 10^3/uL (130-400); Red Cell Dist. Width 11.8 % (11.5-14.5)
[2025-04-16 07:17] LABS: ALT (SGPT) 15 U/L (0-50); AST (SGOT) 17 U/L (17-59); Albumin 3.6 g/dl (3.5-5.0); Alkaline Phosphatase 110 U/L (38-126); Blood Urea Nitrogen 20 mg/dl (9-20); Calcium 9.4 mg/dl (8.4-10.2); Carbon Dioxide 25 mmol/L (22-30); Chloride 105 mmol/L (98-107); Estimated Creatinine Clearance 62 ml/min; Glucose 181 mg/dl (70-99); Potassium 5.8 mmol/L (3.5-5.1); Sodium 137 mmol/L (135-145); Total Protein 6.3 g/dl (6.3-8.2); eGFR > 60.00
[2025-04-16 07:37] LABS: Glucose - Point of Care 156 mg/dl (70-99)
[2025-04-16] MEDS: DEXTROSE 50% SYRINGE 25 GRAMS IV (07:41)
[2025-04-16] MEDS: NOVOLIN R 0.1 UNITS IV (07:41)
[2025-04-16 08:18] LABS: Magnesium 2.4 mg/dl (1.6-2.3)
[2025-04-16] MEDS: ASPIR LOW (ENTERIC COATED) 81 MG PO (08:23)
[2025-04-16 08:53] LABS: Glucose - Point of Care 142 mg/dl (70-99)
--- NOTE | 2025-04-16 08:57 | W.PN.HOSP.TC ---
Today's Communication/Plan
-
see PN
Assessment / Plan
Assessment / Plan
84yo M with PMHx of L shoulder joint replacement, ASCVD, HLD, HTN sent by bit grinder with concern for GCA. PAtient developed blurry and double vision in his L eye approximately 1 month ago, that was transient. Eval in ED showed b/l carotid
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 Managed for GCA
A/P:
#R eye blurred vision and pain in b/l TMJ
concerned for CGA
Pulse steroids due to ophthalmic symptoms
Vasc Sx for biopsy TA b/l
MRI brain neg
watch AM blood sugars
#Carotid stenosis
80% R and 60% left
Vasc Sx follow up
cont ASA
#Hyperkalemia
low potssium diet
stop lisinopril, use chlorthalidone if BP control needed
CPK WNL
follow potassium - s/p insulin/dextrose on 04/16/25
#Leukocytosis
steroid-induced
no clinical signs of infection, afebrile
#HLD
cont statin
#Essential HTN
cont lisinopril
#1st degree AVB
avoid CCB and BB
telemetry
EKG with bifascicular block not changed since Sep 2024
#Recent decrease in appetite
recommended outpatient cancer screening with PCP, consider repeating colonoscopy - patient and son bedside verbalized understanding of the instructions
DVT ppx SCDs (for TA biopsy)
Full code
I have spent at least 752min reviewing chart, test results, communication with consultants, family and providing direct apatient care
Anticipated Discharge: 24 - 48 hours
Subjective/Interval History
-
Date of Service: April 16, 2025
Objective Data
-
Labs:
Laboratory Results
04/16/25
06:21
WBC 13.8 H
Hgb 11.2 L
Hct 33.4 L
Plt Count 310
Sodium 137
Potassium 5.8 H D
Chloride 105
Carbon Dioxide 25
BUN 20
Creatinine 0.8
Glucose 181 H
Calcium 9.4
Total Bilirubin 0.4
AST 17
ALT 15
Alkaline Phosphatase 110
Vital Signs:
Vital Signs
Temp Pulse Resp BP Pulse Ox
97.6 F 74 16 103/53 94
04/16/25 07:30 04/16/25 07:30 04/16/25 07:30 04/16/25 07:30 04/16/25 07:30
I&O
04/15/25 04/16/25 04/17/25
06:59 06:59 06:59
Intake Total 840 / 840
Balance 840 / 840
Review of Systems
-
History Source: Patient
All other systems: Reviewed and negative
EENT: Reports Other (line of central blurry vision on R , no dark sports)
Physical Exam
-
General: Comfortable
HEENT: Normocephalic
Respiratory: Clear to Auscultation
GI: Soft, Nontender and Nondistended
Skin: Warm
Neuro: Awake, Alert, Oriented and AO x 3
Psych: Calm
[2025-04-16 09:59] LABS: Glucose - Point of Care 119 mg/dl (70-99)
[2025-04-16] MEDS: PERIDEX 0.12% ORAL RINSE 15 ML PO (10:40)
[2025-04-16] MEDS: BACTROBAN 2% OINTMENT 1 APPLIC NASAL (10:50)
--- NOTE | 2025-04-16 11:38 | W.SUR.PREOP ---
Pre-Operative Surgical Note
-
I have examined this patient prior to the performance of the scheduled procedure.
The patient's condition is unchanged from the time of the current History and
Physical and the patient is able to undergo the scheduled procedure.
[2025-04-16 12:22] LABS: Glucose - Point of Care 108 mg/dl (70-99)
[2025-04-16 12:25] LABS: Glycohemoglobin (HgbA1c) 5.9 % (4.0-5.6)
--- NOTE | 2025-04-16 13:12 | W.SUR.POST ---
Surgical Immediate Post Op
Note
Pre Op Diagnosis: Blurred Vision
Post Op Diagnosis: Blurred Vision
Procedure Performed: Bilateral temporal artery biopsy
Primary Surgeon: Chris Greenberg III, MD
Secondary Surgeons: Elgin Duggan MD
Anesthesia: see anesthesia report
Estimated Blood Loss: 2 cc
Fluids: see anesthesia report
Drains/Shunts: none
Specimens/Cultures: bilateral temporal artery biopsies
Doppler/Duplex/Angio (Y/N): N
Complications: none
Operative Findings: uncomplicated bilateral temporal artery biopsies
[2025-04-16 13:17] LABS: Blood Urea Nitrogen 18 mg/dl (9-20); Calcium 9.4 mg/dl (8.4-10.2); Carbon Dioxide 23 mmol/L (22-30); Chloride 105 mmol/L (98-107); Estimated Creatinine Clearance 71 ml/min; Glucose 125 mg/dl (70-99); Potassium 4.3 mmol/L (3.5-5.1); Sodium 137 mmol/L (135-145); eGFR > 60.00
--- NOTE | 2025-04-16 13:54 | OR.RPT ---
Operative Report
Operative Report
Date of Operation: 04/16/2025
Pre Op Diagnosis: Suspected temporal arteritis
Post Op Diagnosis: Suspected temporal arteritis
Procedure: BILATERAL temporal artery biopsies
Surgeon: Chris Greenberg III, MD
Customer Servicer: Elgin Duggan MD PGY-6
Anesthesia: Sedation/local
Complications: None
Estimated Blood Loss: Minimal
History and Indications for Procedure: 84-year-old male with symptom constellation concerning for temporal arteritis. We were asked to provide bilateral temporal artery biopsies.
Procedure in Detail: Jacky Pavon was correctly identified and placed supine on the operating table. After adequate induction of anesthesia the hair overlying the bilateral temporal regions was shaved. We could not palpate the temporal
artery pulses bilaterally. Therefore the temporal arteries were identified with ultrasound guidance bilaterally and appropriate skin incisions were marked bilaterally. The bilateral temporal regions were then prepped and draped in the usual
sterile fashion. The patient received preoperative antibiotics. A timeout procedure was performed with the nursing and anesthesia staff confirming the patient's identity as well as the nature and laterality of the procedure.
Bilateral temporal artery biopsies were performed one at a time in the same manner as follows: Local anesthesia was infiltrated into the skin and subcutaneous tissue at the skin bashir. A skin incision was made over the temporal skin bashir.
Electrocautery and sharp dissection were used to expose the temporal artery. After adequate length of temporal artery had been exposed within the wound bed the proximal and distal ends were ligated with silk ties and small metal clips. The
intervening artery segment was transected proximally and distally and removed. The artery segment was identified according to laterality and passed off to the back table to be labeled and sent to pathology. The wound was then closely inspected for
hemostasis which was achieved. The wound was irrigated with saline solution.
Each wound was closed in layers. Skin glue was applied to each incision bilaterally.
The patient tolerated the procedure well and was taken to the recovery room in good condition.
Attestation: I was present and responsible for the entire procedure
Signed:
Chris Greenberg III, MD
[facility] Vascular Surgery
[phone] (cell)
[2025-04-16] MEDS: SOLU-MEDROL 258 MG IV (14:29)
[2025-04-16 14:47] LABS: Glucose - Point of Care 145 mg/dl (70-99)
--- NOTE | 2025-04-16 15:56 | CM ---
Patient seen at bedside
today procedure BILATERAL temporal artery biopsies
PLAN: Home, no needs anticipated when stable
son will transport
[2025-04-16] MEDS: NSS 1000 IV (16:00)
[2025-04-16] MEDS: CRESTOR 20 MG PO (17:45)
[2025-04-17 03:23] VITALS: BP 114/56
[2025-04-17 07:19] LABS: Blood Urea Nitrogen 21 mg/dl (9-20); Calcium 9.6 mg/dl (8.4-10.2); Carbon Dioxide 24 mmol/L (22-30); Chloride 106 mmol/L (98-107); Estimated Creatinine Clearance 62 ml/min; Glucose 166 mg/dl (70-99); Potassium 5.6 mmol/L (3.5-5.1); Sodium 138 mmol/L (135-145); eGFR > 60.00
[2025-04-17 07:30] VITALS: BP 130/69
[2025-04-17] MEDS: ASPIR LOW (ENTERIC COATED) 81 MG PO (09:23)
[2025-04-17] MEDS: LOKELMA 5 GRAM PO (09:23)
--- NOTE | 2025-04-17 10:40 | W.PN.HOSP.TC ---
Today's Communication/Plan
-
cont pulse steroids
Assessment / Plan
Assessment / Plan
84yo M with PMHx of L shoulder joint replacement, ASCVD, HLD, HTN sent by coring machine operator with concern for GCA. PAtient developed blurry and double vision in his L eye approximately 1 month ago, that was transient. Eval in ED showed b/l carotid
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 Managed for GCA s/p TA bipsy and now on pulse steroids for 5 days as advised by Rheumatology
A/P:
#R eye blurred vision and pain in b/l TMJ
concerned for CGA
Vasc Sx did biopsy TA b/l on 04/16/25
MRI brain neg
recent Carotid US without clinically significant stenosis
watch AM blood sugars
Discussed with insurance customer service specialist: patient noticed improvement but not full resolution of R eye blurriness. Loop Machine Operator advised to cont pulse steroids 5 days, then Prednisone 60mg daily and outpatient f/u with office - contact info
provided to office, they will contact patient on 04/19/25. Plan for possible Actemra - added HepB and Quantiferon in preparation to that.
#Carotid stenosis
80% R and 60% left
Vasc Sx follow up
cont ASA
#Hyperkalemia
low potssium diet
stop lisinopril, use chlorthalidone if BP control needed
CPK WNL
follow potassium - s/p insulin/dextrose on 04/16/25
#Leukocytosis
steroid-induced
no clinical signs of infection, afebrile
#HLD
cont statin
#Essential HTN
cont lisinopril
#1st degree AVB
avoid CCB and BB
telemetry
EKG with bifascicular block not changed since Sep 2024
#Recent decrease in appetite
recommended outpatient cancer screening with PCP, consider repeating colonoscopy - patient and son bedside verbalized understanding of the instructions
DVT ppx SCDs (for TA biopsy)
Full code
I have spent at least 51min reviewing chart, test results, communication with consultants, family and providing direct apatient care
Anticipated Discharge: 24 - 48 hours
Subjective/Interval History
-
Date of Service: April 17, 2025
Objective Data
-
Labs:
Laboratory Results
04/17/25 04/17/25
06:24 12:00
Sodium 138
Potassium 5.6 H D Pending
Chloride 106
Carbon Dioxide 24
BUN 21 H
Creatinine 0.8
Glucose 166 H
Calcium 9.6
Vital Signs:
Vital Signs
Temp Pulse Resp BP Pulse Ox
97.8 F 65 16 130/69 98
04/17/25 07:30 04/17/25 07:30 04/17/25 07:30 04/17/25 07:30 04/17/25 07:30
I&O
04/16/25 04/17/25 04/18/25
06:59 06:59 06:59
Intake Total 840 / 840 900 / 900
Balance 840 / 840 900 / 900
[2025-04-17] MEDS: SOLU-MEDROL 258 MG IV (10:59)
[2025-04-17 11:00] VITALS: BP 127/60
--- NOTE | 2025-04-17 12:18 | CM ---
Patient chart reviewed
cont pulse steroids
PLAN: Home, no needs anticipated, CM to continue to follow
[2025-04-17 13:17] LABS: Potassium 4.9 mmol/L (3.5-5.1)
[2025-04-17 15:00] VITALS: BP 143/75
[2025-04-17] MEDS: CRESTOR 20 MG PO (17:32)
[2025-04-17 19:00] VITALS: BP 140/71
[2025-04-17 23:00] VITALS: BP 115/49
[2025-04-18 03:00] VITALS: BP 112/53
[2025-04-18 07:01] LABS: Hematocrit 31.6 % (39.0-52.0); Hemoglobin 10.5 g/dL (13.0-18.0); Mean Corp Hgb Conc. 33.2 g/dL (33.0-37.0); Mean Corpuscular Volume 94.9 fL (80.0-94.0); Nucleated Red Blood Cells % 0 % (-); Platelet Count 248 10^3/uL (130-400); Red Cell Dist. Width 12.2 % (11.5-14.5)
[2025-04-18 07:12] LABS: ALT (SGPT) 17 U/L (0-50); AST (SGOT) 17 U/L (17-59); Albumin 3.1 g/dl (3.5-5.0); Alkaline Phosphatase 92 U/L (38-126); Blood Urea Nitrogen 22 mg/dl (9-20); Calcium 9.4 mg/dl (8.4-10.2); Carbon Dioxide 26 mmol/L (22-30); Chloride 107 mmol/L (98-107); Estimated Creatinine Clearance 71 ml/min; Glucose 148 mg/dl (70-99); Potassium 4.8 mmol/L (3.5-5.1); Sodium 138 mmol/L (135-145); Total Protein 5.8 g/dl (6.3-8.2); eGFR > 60.00
[2025-04-18 07:14] VITALS: BP 132/64
[2025-04-18 07:15] LABS: C-Reactive Protein 9.00 mg/L (0.0-10.00)
[2025-04-18] MEDS: ASPIR LOW (ENTERIC COATED) 81 MG PO (07:50)
--- NOTE | 2025-04-18 10:05 | CM ---
Patient seen at bedside
offered VN-declines at this time
PLAN: home, no needs when stable
[2025-04-18] MEDS: SOLU-MEDROL 258 MG IV (11:31)
[2025-04-18 11:36] LABS: Hepatitis B Surface Antigen Negative (Negative)
--- NOTE | 2025-04-18 12:06 | W.PN.HOSP.TC ---
Today's Communication/Plan
-
last dose of IV steroids in AM and d/c
No clinically significant arrhythmia on tele - can discontinue
Assessment / Plan
Assessment / Plan
84yo M with PMHx of L shoulder joint replacement, ASCVD, HLD, HTN sent by producer assistant with concern for GCA. PAtient developed blurry and double vision in his L eye approximately 1 month ago, that was transient. Eval in ED showed b/l carotid
stenosis, no LVO, vertebral artery stenosis b/l 2/ DJD.MRI brain w/wo contrast unremarkable for acute findings. Managed for GCA s/p TA biopsy and now on pulse steroids for 5 days as advised by Rheumatology
A/P:
#R eye blurred vision and pain in b/l TMJ
concerned for CGA
Vasc Sx did biopsy TA b/l on 04/16/25
MRI brain neg
recent Carotid US without clinically significant stenosis
watch AM blood sugars
Discussed with infrastructure solutions architect: patient noticed improvement but not full resolution of R eye blurriness. Housekeeper Home advised to cont pulse steroids 5 days, then Prednisone 60mg daily and outpatient f/u with office - contact info
provided to office, they will contact patient on 04/19/25. Plan for possible Actemra - added HepB and Quantiferon in preparation to that.
#Carotid stenosis
80% R and 60% left
Vasc Sx follow up
cont ASA
#Hyperkalemia
low potssium diet
stop lisinopril, use chlorthalidone if BP control needed
CPK WNL
follow potassium - s/p insulin/dextrose on 04/16/25
#Leukocytosis
steroid-induced
no clinical signs of infection, afebrile
#HLD
cont statin
#Essential HTN
cont lisinopril
#1st degree AVB
avoid CCB and BB
telemetry
EKG with bifascicular block not changed since Sep 2024
#Recent decrease in appetite
recommended outpatient cancer screening with PCP, consider repeating colonoscopy - patient and son bedside verbalized understanding of the instructions
DVT ppx SCDs (for TA biopsy)
Full code
I have spent at least 51min reviewing chart, test results, communication with consultants, family and providing direct apatient care
Anticipated Discharge: Within 24 hours
Subjective/Interval History
-
Date of Service: April 18, 2025
Objective Data
-
Labs:
Laboratory Results
04/18/25
06:34
WBC 9.3
Hgb 10.5 L
Hct 31.6 L
Plt Count 248
Sodium 138
Potassium 4.8
Chloride 107
Carbon Dioxide 26
BUN 22 H
Creatinine 0.7
Glucose 148 H
Calcium 9.4
Total Bilirubin 0.4
AST 17
ALT 17
Alkaline Phosphatase 92
Vital Signs:
Vital Signs
Temp Pulse Resp BP Pulse Ox
98.2 F 61 17 132/64 95
04/18/25 07:14 04/18/25 07:14 04/18/25 07:14 04/18/25 07:14 04/18/25 07:14
I&O
04/17/25 04/18/25 04/19/25
06:59 06:59 06:59
Intake Total 900 / 900 840 / 840 300 / 300
Balance 900 / 900 840 / 840 300 / 300
Review of Systems
-
History Source: Patient
All other systems: Reviewed and negative
Neuro: Reports Other (minimal area of R eye blurry vision )
Physical Exam
-
General: No Apparent Distress
HEENT: Normocephalic
Cardiac: Regular Rhythm
GI: Soft, Nontender and Nondistended
Musculoskeletal: No Clubbing, No Cyanosis and No Edema
Neuro: Awake, Alert, Oriented and AO x 3
Psych: Calm
[2025-04-18 14:42] LABS: Hepatitis C Antibody Negative (Negative)
[2025-04-18 14:57] VITALS: BP 110/58
[2025-04-18] MEDS: CRESTOR 20 MG PO (17:16)
[2025-04-19 06:19] LABS: Hematocrit 32.3 % (39.0-52.0); Hemoglobin 11.0 g/dL (13.0-18.0); Mean Corp Hgb Conc. 34.1 g/dL (33.0-37.0); Mean Corpuscular Volume 93.1 fL (80.0-94.0); Nucleated Red Blood Cells % 0 % (-); Platelet Count 238 10^3/uL (130-400); Red Cell Dist. Width 12.3 % (11.5-14.5)
[2025-04-19 07:06] LABS: C-Reactive Protein 5.80 mg/L (0.0-10.00)
[2025-04-19 07:07] LABS: ALT (SGPT) 19 U/L (0-50); AST (SGOT) 18 U/L (17-59); Albumin 3.1 g/dl (3.5-5.0); Alkaline Phosphatase 91 U/L (38-126); Blood Urea Nitrogen 23 mg/dl (9-20); Calcium 8.9 mg/dl (8.4-10.2); Carbon Dioxide 26 mmol/L (22-30); Chloride 106 mmol/L (98-107); Estimated Creatinine Clearance 71 ml/min; Glucose 148 mg/dl (70-99); Potassium 5.0 mmol/L (3.5-5.1); Sodium 137 mmol/L (135-145); Total Protein 5.6 g/dl (6.3-8.2); eGFR > 60.00
[2025-04-19 07:12] VITALS: BP 127/53
[2025-04-19] MEDS: ASPIR LOW (ENTERIC COATED) 81 MG PO (07:32)
[2025-04-19] MEDS: PROTONIX 40 MG PO (09:28)
--- NOTE | 2025-04-19 11:31 | W.PN.HOSP.TC ---
Addendum entered and electronically signed by Anthony Mays MD 04/19/25 15:17:
correction: Okay to continue lisinopril
Original Note:
Today's Communication/Plan
-
Monitor vital signs see plan
Discharge today with rheumatology and vascular follow-up
IV steroids today before discharge
Prednisone 60 mg starting tomorrow, add PPI
Time of discharge 38 minutes
Assessment / Plan
Assessment / Plan
84yo M with PMHx of L shoulder joint replacement, ASCVD, HLD, HTN sent by senior hr manager with concern for GCA. PAtient developed blurry and double vision in his L eye approximately 1 month ago, that was transient. Eval in ED showed b/l carotid
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 Managed for GCA s/p TA biopsy and now on pulse steroids for 5 days as advised by Rheumatology
A/P:
#R eye blurred vision and pain in b/l TMJ
concerned for CGA
Vasc Sx did biopsy TA b/l on 04/16/25
MRI brain neg
recent Carotid US without clinically significant stenosis
Discussed with graphic manager: patient noticed improvement but not full resolution of R eye blurriness. Business Applications Analyst advised to cont pulse steroids 5 days, then Prednisone 60mg daily and outpatient f/u with office - contact info
provided to office, they will contact patient on 04/19/25. Plan for possible Actemra - added HepB and Quantiferon in preparation to that.
Patient to follow with rheumatology outpatient. Prednisone 60 mg daily starting 04/20. Add PPI
#Carotid stenosis
80% R and 60% left
Vasc Sx follow up
cont ASA
#Hyperkalemia
low potssium diet
stop lisinopril, use chlorthalidone if BP control needed
CPK WNL
follow potassium - s/p insulin/dextrose on 04/16/25
#Leukocytosis
steroid-induced
no clinical signs of infection, afebrile
#HLD
cont statin
#Essential HTN
cont lisinopril
#1st degree AVB
avoid CCB and BB
telemetry
EKG with bifascicular block not changed since Sep 2024
#Recent decrease in appetite
recommended outpatient cancer screening with PCP, consider repeating colonoscopy - patient and son bedside verbalized understanding of the instructions
DVT ppx SCDs (for TA biopsy)
Full code
General: No Apparent Distress
HEENT: Normocephalic
Cardiac: Regular Rhythm
GI: Soft, Nontender and Nondistended
Musculoskeletal: No Clubbing, No Cyanosis
Neuro: Awake, Alert, Oriented and AO x 3
Psych: Calm
Anticipated Discharge: Today
Subjective/Interval History
-
Date of Service: April 19, 2025
denies pain
Objective Data
-
Labs:
Laboratory Results
04/19/25
06:08
WBC 8.6
Hgb 11.0 L
Hct 32.3 L
Plt Count 238
Sodium 137
Potassium 5.0
Chloride 106
Carbon Dioxide 26
BUN 23 H
Creatinine 0.7
Glucose 148 H
Calcium 8.9
Total Bilirubin 0.4
AST 18
ALT 19
Alkaline Phosphatase 91
Vital Signs:
Vital Signs
Temp Pulse Resp BP Pulse Ox
98.2 F 62 17 127/53 97
04/19/25 07:12 04/19/25 07:12 04/19/25 07:12 04/19/25 07:12 04/19/25 07:12
I&O
04/18/25 04/19/25 04/20/25
06:59 06:59 06:59
Intake Total 840 / 840 1740 / 1740
Balance 840 / 840 1740 / 1740
--- NOTE | 2025-04-19 11:36 | W.DCSUMMARY ---
Discharge Summary
Discharge Data
Date of Admission: 04/15/25
Date of Discharge: 04/19/25
-
Pending Results: No
Hospital Course
Right 84-year-old male with past medical history of left shoulder joint replacement, CAD, hypertension, hyperlipidemia sent in by metal bonding helper for concern for giant cell arteritis. MRI brain was negative for any vasculitis. Case was discussed
with rheumatology who recommended pulsed dose steroids followed by prednisone 60 mg daily and outpatient follow-up. Vascular surgery was also consulted for temporal artery biopsy. Patient got temporal artery biopsy on 04/16/2025. Once patient
symptoms continue to improve, he was then discharged home with instructions to follow-up with all his Physicians outpatient.
Discharge Plan
-
Patient Disposition: Home (Routine Discharge)
Discharge Diagnosis/Procedures: Suspected giant cell arteritis
Diet: As tolerated
Activity: As tolerated and No strenuous activity
Bathing Restrictions: OK to Shower
Stand Alone Forms: Vascular Surg Discharge Instr
Referrals:
Mono Alejo DO [Consulting Staff, Rheumatology] - in less than 1 week
Mono Palacios MD [Family Provider, [facility]]
Chris Greenberg III, MD [Active, Vascular Surgery] - 04/29/25 12:00 pm
Prescriptions:
New
prednisone 20 mg tablet
60 mg PO DAILY Qty: 90 0RF
pantoprazole 40 mg Tablet,Delayed Release (Dr/Ec)
40 mg PO DAILY Qty: 30 0RF
Continued
lisinopril 20 MG tablet
20 mg PO DAILY
aspirin 81 mg Tablet,Delayed Release (Dr/Ec)
81 mg PO DAILY
rosuvastatin [Crestor] 20 mg Tablet
20 mg PO QPM
Discontinued
prednisone 20 mg Tablet
20 mg PO BID
Discharge Orders:
Discharge Patient (As Directed); Ordered 04/19/25
Ordered By: Anthony Mays
Discharge Date and Time
Discharge Date/Time: 04/19/25 14:27
Print Language: AMHARIC
[2025-04-19] MEDS: SOLU-MEDROL 258 MG IV (11:47)
--- NOTE | 2025-04-19 12:07 | CM ---
flight reservations manager reviewed patient's chart and patient has been cleared for discharge today, plan is to home no needs.
Plan; Home today no needs.
== END 2025-04-19 14:27 | disposition home or self-care (01) | DRG 516 ==
LOC: 3 WEST ACU 11:10
PROVIDERS: Nurse Practitioner; ADMITTING PHYSICIAN Internal Medicine; ATTENDING PHYSICIAN Internal Medicine; CONSULT PHYSICIAN Surgery Vascular Surgery; EMERGENCY PHYSICIAN Emergency Medicine; FAMILY PHYSICIAN Family Medicine
PROC: 03BS0ZX Excision of Right Temporal Artery, Open Approach, Diagnostic (ICD-10-PCS; 2025-04-16)
PROC: 03BT0ZX Excision of Left Temporal Artery, Open Approach, Diagnostic (ICD-10-PCS; 2025-04-16)
DX: M31.6 Other giant cell arteritis (principal); I45.2 Bifascicular block; H53.9 Unspecified visual disturbance; H54.7 Unspecified visual loss; E78.00 Pure hypercholesterolemia, unspecified; I10 Essential (primary) hypertension; I44.0 Atrioventricular block, first degree; I45.10 Unspecified right bundle-branch block; I25.10 Atherosclerotic heart disease of native coronary artery without angina pectoris; R79.82 Elevated C-reactive protein (CRP); I65.23 Occlusion and stenosis of bilateral carotid arteries; E87.5 Hyperkalemia; H53.2 Diplopia; M26.623 Arthralgia of bilateral temporomandibular joint; D72.829 Elevated white blood cell count, unspecified; T38.0X5A Adverse effect of glucocorticoids and synthetic analogues, initial encounter; Y92.9 Unspecified place or not applicable; Z60.2 Problems related to living alone; Z79.82 Long term (current) use of aspirin; Z87.891 Personal history of nicotine dependence; Z90.49 Acquired absence of other specified parts of digestive tract
CPT/HCPCS: 37609; 70553; 80048; 80053; 82248; 82550; 82962; 83036; 83735; 84132; 85025; 85610; 85652; 85730; 86140; 86480; 86704; 86706; 86803; 87340; 88305; 88313; 93005; 96361; 96374; 99284; A9575

== ENCOUNTER → 2025-05-18 09:26 | Outpatient (REF) | payer OTHER, SELFPAY | LOC: RAD 09:26 | PROVIDERS: ATTENDING PHYSICIAN Student in an Organized Health Care Education/Training Program; FAMILY PHYSICIAN Family Medicine | DX: M81.0 Age-related osteoporosis without current pathological fracture (principal); Z79.52 Long term (current) use of systemic steroids | CPT/HCPCS: 77080 ==